=== PATIENT | female | born 1945 | race Caucasian/White ===

== ENCOUNTER 2023-11-06 22:37 | Emergency (ER) | payer MEDICARE ==
[~2023-11-06] VITALS: Ht 160 cm; Wt 68.2 kg
[~2023-11-06 22:37] MED LIST: ATOR10TA87 PO; CALC-674 PO; CHOL2000 PO; HYDR12.522 PO; LISI40TA13 PO; METF-1203 PO; MULT-785 PO; OMEG1CAP45 PO
[2023-11-06 23:08] VITALS: TEMP 97.7
[2023-11-07] MEDS: TETanus/Pertussis (Acell)/Diphther VAC/PF (Tdap-Adult) 0.5ml syringe IMVAC ONE (01:46)
[2023-11-07 02:35] VITALS: BP 153/60; PULSE 85; RESP 18; O2SAT 98
== END 2023-11-07 02:35 | disposition home or self-care (01) ==
LOC: ER 22:39
DX: S02.2XXA Fracture of nasal bones, initial encounter for closed fracture (principal); S01.511A Laceration without foreign body of lip, initial encounter; S80.212A Abrasion, left knee, initial encounter; R04.0 Epistaxis; Z88.2 Allergy status to sulfonamides; Z79.899 Other long term (current) drug therapy; W19.XXXA Unspecified fall, initial encounter; Y93.89 Activity, other specified; Y92.89 Other specified places as the place of occurrence of the external cause; Y99.8 Other external cause status
CPT/HCPCS: 70450; 70486; 72125; 90471; 90715; 99285